=== PATIENT | male | born 1985 | race African-American/Black ===

== ENCOUNTER 2016-07-02 23:51 | Emergency (ER) | payer OTHER ==
--- NOTE | 2016-07-03 01:42 | ED Physician Documentation ---
General Adult - HISTORIAN Historian: patient - HPI Stated Complaint: R HAND INJURY Chief Complaint: General Adult Onset: hours Timing: still present Severity: moderate Further Comments: yes (Pt is a 31 yo male inmate from the correctional facility who fell in a stairwell and injured his R hand. Pt has signicant swelling and tenderness over the R 5th metacarpal.) - ROS CONST: no problems EYES/ENT: none CVS/RESP: none GI/: none MS/SKIN/LYMPH: other (R hand injury, pain & swelling) - PAST HX Past History: other (glaucoma) Allergies/Adverse Reactions: Allergies Allergy/AdvReac Type Severity Reaction Status Date / Time No Known Allergies Allergy Verified 07/03/16 00:13 Home Medications: Ambulatory Orders Medication Instructions Recorded Latanoprost [Xalatan] 1 drop OP HS 07/03/16 - SOCIAL HX Smoking History: non-smoker - FAMILY HX Family History: No - VITAL SIGNS Vital Signs: Vital Signs Temp Pulse Resp BP Pulse Ox 98.1 F 79 18 164/103 98 07/02/16 23:51 07/02/16 23:51 07/02/16 23:51 07/02/16 23:51 07/02/16 23:51 - REVIEWED ASSESSMENTS Nursing Assessment Reviewed: Yes Vitals Reviewed: Yes Progress - Progress Progress: X-ray R hand: Displaced posteriorly angulated comminuted distal 5th metacarpal fracture. X-ray reviewed by Dr. Luke at [facility] in [place]. It is not clear whether or not the correctional facility is contracted with [facility], [place] for orthopedic issues. Pt may follow up in Dr. Luke's clinic on 07-05-16 or may arrange follow up with another surgical training specialist. Pt is not allowed pain medications other than OTC meds. ED Results Lab/Radiology - Orders Orders: ED Orders Category Date Time Status HAND 3 VIEWS OR MORE [RAD] Stat Exams 07/03/16 Taken General Adult Physical Exam - PHYSICAL EXAM GENERAL APPEARANCE: mild distress EENT: eye inspection normal NECK: normal inspection, supple RESPIRATORY: no resp distress BACK: normal inspection SKIN: other (swelling over R 5th metacarpal) EXTREMITIES: other (tenderness, swelling over R 5th metacapal) NEURO: oriented X3, motor nml, sensation nml Discharge Clincal Impression: Right hand fracture Qualifiers: Encounter type: initial encounter Fracture type: closed Qualified Code(s): S62.91XA - Unspecified fracture of right wrist and hand, initial encounter for closed fracture Referrals: Primary Doctor,No [Primary Care Provider] - 2 Days Home Medications: Ambulatory Orders Latanoprost [Xalatan] 1 drop OP HS 07/03/16 Condition: Good Disposition: 01 HOME, SELF-CARE Decision to Admit: NO Decision Time: 01:45
[2016-07-03 01:52] VITALS: BP 149/84
--- NOTE | 2016-07-03 04:18 | Diagnostic Imaging Report ---
Name: REBECCA HOLLY ~~ ~~ : 85 ~~ Acc #: [id number]~ ~ DOS: Jul 03, 2016 12:38:58 AM TRAINING OFFICER ~~ Mod: CR ~~ Desc: UPPER EXTREMITY 1 of 1 [place] [id number] [facility].[address] [address] ~ ~ ~ ~ Report Submission Date: Jul 03, 2016 12:53:13 AM TRAINING OFFICER Patient ~ Study Name: REBECCA HOLLY ~ Date: Jul 03, 2016 12:38:58 AM TRAINING OFFICER ~ Modality Type: CR Gender: M ~ Description: UPPER EXTREMITY : 85 ~ Institution: [facility] Physician: RAFAEL ARMENTA ~ ~ ~ ~ Right hand 3 views Clinical history: Pain Technique: AP lateral oblique Findings: There is a comminuted fracture of the distal 5th metacarpal with posterior angulation and anterior displacement of the distal fracture fragment. Extensive overlying soft tissue swelling is present. Impression: Displaced posteriorly angulated comminuted distal 5th metacarpal fracture ~ Electronically signed on Jul 03, 2016 12:53:13 AM TRAINING OFFICER by: Oswaldo BRINK
== END 2016-07-03 01:49 | disposition home or self-care (01) ==
LOC: ED 23:51
DX: S62.91XA Unspecified fracture of right hand, initial encounter for closed fracture (principal); W10.9XXA Fall (on) (from) unspecified stairs and steps, initial encounter; Y92.148 Other place in prison as the place of occurrence of the external cause; Y99.9 Unspecified external cause status
CPT/HCPCS: 73130; 99282